=== PATIENT | female | born 1975 | race Caucasian/White ===

== ENCOUNTER 2017-08-26 06:39 | Outpatient (RCR) | payer OTHER, SELFPAY ==
[2017-08-26 08:17] LABS: International Normalized Ratio 2.4
== END 2017-08-26 06:45 | disposition home or self-care (01) ==
LOC: LAB 06:39
PROVIDERS: Family Provider Family Medicine; PCP Family Medicine; Visit Provider Family Medicine
DX: I82.409 Acute embolism and thrombosis of unspecified deep veins of unspecified lower extremity (principal)
CPT/HCPCS: 36415; 85610

== ENCOUNTER 2017-11-05 06:25 | Outpatient (RCR) | payer OTHER, SELFPAY ==
[2017-11-05 07:40] LABS: International Normalized Ratio 2.7; Prothrombin Time (Protime)PT. 28.8 SECONDS (11.7-14.9)
== END 2017-11-05 07:00 | disposition home or self-care (01) ==
LOC: LAB 06:25
PROVIDERS: Family Provider Family Medicine; PCP Family Medicine; Visit Provider Family Medicine
DX: I82.409 Acute embolism and thrombosis of unspecified deep veins of unspecified lower extremity (principal)
CPT/HCPCS: 36415; 85610

== ENCOUNTER 2017-12-09 06:33 | Outpatient (RCR) | payer OTHER, SELFPAY ==
[2017-12-09 07:26] LABS: International Normalized Ratio 2.2; Prothrombin Time (Protime)PT. 24.1 SECONDS (11.7-14.9)
== END 2017-12-09 07:00 | disposition home or self-care (01) ==
LOC: LAB 06:33
PROVIDERS: Family Provider Family Medicine; PCP Family Medicine; Visit Provider Family Medicine
DX: I82.409 Acute embolism and thrombosis of unspecified deep veins of unspecified lower extremity (principal)
CPT/HCPCS: 36415; 85610

== ENCOUNTER 2018-01-17 06:30 | Outpatient (RCR) | payer OTHER, SELFPAY ==
[2018-01-17 08:34] LABS: International Normalized Ratio 2.2; Prothrombin Time (Protime)PT. 24.8 SECONDS (11.7-14.9)
== END 2018-01-17 08:00 | disposition home or self-care (01) ==
LOC: LAB 06:30
PROVIDERS: Family Provider Family Medicine; PCP Family Medicine; Visit Provider Family Medicine
DX: I82.409 Acute embolism and thrombosis of unspecified deep veins of unspecified lower extremity (principal)
CPT/HCPCS: 36415; 85610

== ENCOUNTER 2018-03-02 01:30 | Outpatient (RCR) | payer OTHER, SELFPAY ==
[2018-03-02 03:11] LABS: International Normalized Ratio 1.9
== END 2018-03-02 03:00 | disposition home or self-care (01) ==
LOC: LAB 01:30
PROVIDERS: Family Provider Family Medicine; PCP Family Medicine; Visit Provider Family Medicine
DX: I82.409 Acute embolism and thrombosis of unspecified deep veins of unspecified lower extremity (principal)
CPT/HCPCS: 85610

== ENCOUNTER 2018-04-11 08:58 | Outpatient (RCR) | payer OTHER, SELFPAY ==
[2018-04-11 09:52] LABS: International Normalized Ratio 1.6; Prothrombin Time (Protime)PT. 19.4 SECONDS (11.7-14.9)
== END 2018-04-11 10:00 | disposition home or self-care (01) ==
LOC: LAB 08:58
PROVIDERS: Family Provider Family Medicine; PCP Family Medicine; Visit Provider Family Medicine
DX: I82.409 Acute embolism and thrombosis of unspecified deep veins of unspecified lower extremity (principal)
CPT/HCPCS: 36415; 85610

== ENCOUNTER 2018-05-05 02:56 | Outpatient (RCR) | payer OTHER, SELFPAY ==
[2018-05-05 03:37] LABS: International Normalized Ratio 2.2; Prothrombin Time (Protime)PT. 24.9 SECONDS (11.7-14.9)
== END 2018-05-05 04:00 | disposition home or self-care (01) ==
LOC: LAB 02:56
PROVIDERS: Family Provider Family Medicine; PCP Family Medicine; Visit Provider Family Medicine
DX: I82.409 Acute embolism and thrombosis of unspecified deep veins of unspecified lower extremity (principal)
CPT/HCPCS: 85610

== ENCOUNTER 2018-06-04 05:22 | Outpatient (RCR) | payer OTHER, SELFPAY ==
[2018-06-04 07:35] LABS: International Normalized Ratio 2.3; Prothrombin Time (Protime)PT. 25.6 SECONDS (11.7-14.9)
== END 2018-06-04 07:00 | disposition home or self-care (01) ==
LOC: LAB 05:22
PROVIDERS: Family Provider Family Medicine; PCP Family Medicine; Referring Provider Family Medicine; Visit Provider Family Medicine
DX: Z79.01 Long term (current) use of anticoagulants (principal)
CPT/HCPCS: 85610

== ENCOUNTER 2018-08-08 23:20 | Outpatient (RCR) | payer OTHER, SELFPAY ==
[2018-08-09 00:04] LABS: International Normalized Ratio 2.7
== END 2018-08-08 23:40 | disposition home or self-care (01) ==
LOC: LAB 23:20
PROVIDERS: Family Provider Family Medicine; PCP Family Medicine; Referring Provider Family Medicine; Visit Provider Family Medicine
DX: I82.409 Acute embolism and thrombosis of unspecified deep veins of unspecified lower extremity (principal)
CPT/HCPCS: 36415; 85610

== ENCOUNTER 2018-09-26 05:12 | Outpatient (RCR) | payer OTHER, SELFPAY ==
[2018-09-26 07:25] LABS: International Normalized Ratio 2.1; Prothrombin Time (Protime)PT. 23.4 SECONDS (11.7-14.9)
== END 2018-10-16 14:51 | disposition home or self-care (01) ==
LOC: LAB 05:12
PROVIDERS: Family Provider Family Medicine; PCP Family Medicine; Referring Provider Family Medicine; Visit Provider Family Medicine
DX: I82.409 Acute embolism and thrombosis of unspecified deep veins of unspecified lower extremity (principal)
CPT/HCPCS: 85610

== ENCOUNTER 2018-11-11 14:59 | Outpatient (RCR) | payer OTHER, SELFPAY ==
[2018-11-11 18:12] LABS: International Normalized Ratio 2.7; Prothrombin Time (Protime)PT. 28.5 SECONDS (11.7-14.9)
== END 2018-11-11 15:59 | disposition home or self-care (01) ==
LOC: LAB 14:59
PROVIDERS: Family Provider Family Medicine; PCP Family Medicine; Referring Provider Family Medicine; Visit Provider Family Medicine
DX: I82.409 Acute embolism and thrombosis of unspecified deep veins of unspecified lower extremity (principal); E46 Unspecified protein-calorie malnutrition; Z79.01 Long term (current) use of anticoagulants
CPT/HCPCS: 36415; 85610

== ENCOUNTER 2018-12-19 12:08 | Outpatient (RCR) | payer OTHER, SELFPAY ==
[2018-12-19 14:14] LABS: International Normalized Ratio 1.9
== END 2018-12-19 13:00 | disposition home or self-care (01) ==
LOC: MTLAB 12:08
PROVIDERS: Family Provider Family Medicine; PCP Family Medicine; Referring Provider Family Medicine; Visit Provider Family Medicine
DX: I82.409 Acute embolism and thrombosis of unspecified deep veins of unspecified lower extremity (principal); E46 Unspecified protein-calorie malnutrition; Z79.01 Long term (current) use of anticoagulants
CPT/HCPCS: 36415; 85610

== ENCOUNTER 2019-01-26 12:04 | Outpatient (RCR) | payer OTHER, SELFPAY ==
[2019-01-26 14:18] LABS: International Normalized Ratio 2.5; Prothrombin Time (Protime)PT. 27.1 SECONDS (11.7-14.9)
== END 2019-01-26 12:30 | disposition home or self-care (01) ==
LOC: MTLAB 12:04
PROVIDERS: Family Provider Family Medicine; PCP Family Medicine; Referring Provider Family Medicine; Visit Provider Family Medicine
DX: I82.409 Acute embolism and thrombosis of unspecified deep veins of unspecified lower extremity (principal); E46 Unspecified protein-calorie malnutrition; Z79.01 Long term (current) use of anticoagulants
CPT/HCPCS: 36415; 85610

== ENCOUNTER 2019-03-02 14:31 | Outpatient (RCR) | payer OTHER, SELFPAY ==
[2019-03-02 18:00] LABS: International Normalized Ratio 2.6; Prothrombin Time (Protime)PT. 27.7 SECONDS (11.7-14.9)
== END 2019-03-02 15:00 ==
LOC: MTLAB 14:31
PROVIDERS: Family Provider Family Medicine; PCP Family Medicine; Referring Provider Family Medicine; Visit Provider Family Medicine
DX: I82.409 Acute embolism and thrombosis of unspecified deep veins of unspecified lower extremity (principal); E46 Unspecified protein-calorie malnutrition; Z79.01 Long term (current) use of anticoagulants
CPT/HCPCS: 36415; 85610

== ENCOUNTER 2019-04-13 06:53 | Outpatient (RCR) | payer OTHER, SELFPAY ==
[2019-04-13 07:19] LABS: Absolute Lymphocyte Count 1.85 X10^3/uL (0.83-4.51); Absolute Neutrophil Count 3.9 X10^3/uL (2.0-7.7); Basophil# 0.03 X10^3/uL; Basophil% 0.5 % (0-1); Eosinophil# 0.08 X10^3/uL; Eosinophils% 1.2 % (0-5); Hematocrit 44.2 % (37-47); Hemoglobin 14.1 g/dL (12.0-15.0); Lymphocyte # 1.85 X10^3/ul (4.0); Lymphocyte % 28.6 % (19-41); Mean Corp Hgb Conc 31.9 g/dL (32-36); Mean Corpuscular Hgb 30.3 pg (27.0-32.0); Mean Corpuscular Volume 94.8 fL (81-99); Monocyte# 0.56 X10^3/uL; Monocyte% 8.7 % (0-10); NRBC Flagged by Analyzer 0 % (0-5); Neutrophil # 3.91 X10^3/uL (2.7-7.7); Neutrophil % 60.5 % (47-70); Platelet Count 230 K/mm3 (150-450); RBC Distribution Width CV 13.3 % (11.6-14.6); RBC Distribution Width SD 46.2 fl (35.1-43.9); Red Blood Count 4.66 M/mm3 (4.2-5.4); White Blood Count 6.5 K/mm3 (4.4-11.0)
[2019-04-13 07:32] LABS: International Normalized Ratio 2.7; Prothrombin Time (Protime)PT. 28.5 SECONDS (11.7-14.9)
[2019-04-13 08:00] LABS: ALB/GLOB Ratio 0.9 RATIO (0.9-2.4); AST(SGOT) 12 U/L (15-37); Alanine Aminotransfer ALT/SGPT 11 U/L (13-56); Albumin, Serum 3.5 g/dL (3.2-5.0); Alkaline Phosphatase 66 U/L (45-117); Anion Gap 5 (5-15); BUN 20 mg/dL (7-18); BUN/Creat Ratio 24.2 RATIO (10-20); Calcium,Total 8.9 mg/dL (8.5-10.1); Chloride 112 mmol/L (98-107); Cholesterol 186 mg/dL (200); Creatinine, Serum 0.82 mg/dL (0.55-1.02); EST Glomerular Filtration Rate 81 mL/min (>60); Est Glom Filt Rate - Afr Amer 97 mL/min (>60); Globulin 3.7 g/dL (2.2-4.2); Glucose 86 mg/dL (74-106); High Density Lipoprotein 82 mg/dL; Potassium 3.9 mmol/L (3.5-5.1); Protein, Total 7.2 g/dL (6.4-8.2); Sodium Level 142 mmol/L (136-145); Triglycerides 78 mg/dL; Very Low Density Lipoprotein 16 mg/dL (5-40)
== END 2019-04-13 07:53 | disposition home or self-care (01) ==
LOC: LAB 06:53
PROVIDERS: Family Provider Family Medicine; PCP Family Medicine; Referring Provider Family Medicine; Visit Provider Family Medicine
DX: I82.409 Acute embolism and thrombosis of unspecified deep veins of unspecified lower extremity (principal); E46 Unspecified protein-calorie malnutrition; Z79.01 Long term (current) use of anticoagulants
CPT/HCPCS: 36415; 80053; 80061; 85025; 85610

== ENCOUNTER → 2019-04-15 | Outpatient (CLI) | payer OTHER, SELFPAY ==
--- NOTE | 2019-04-15 07:36 | BI_ITS ---
MAMMOGRAPHY - BILATERAL SCREENING REASON FOR EXAM: Female, 43 years old. Routine annual screening examination. PERTINENT HISTORY: Non-contributory. TECHNIQUE: Digital bilateral breast monika (3D mammographic acquisition) in the CC and MLO projections. 2-D mediolateral oblique (MLO) and craniocaudad (CC) views of both breasts were obtained. CAD: Full Field Digital Mammography with Computer Added Detection was performed. COMPARISON: None. Baseline examination. FINDINGS: Breast Composition: The breasts are heterogeneously dense, which may obscure small masses. There are no dominant masses or suspicious calcifications. No other significant abnormalities are identified. BI/SCREEN MAMM (CAD) W/MONIKA BILAT IMPRESSION: Negative screening mammogram. Yearly followup mammogram recommended. (A) ASSESSMENT CATEGORY: BIRADS Category 1: Negative. A letter regarding these results will be sent to the patient by the facility within 30 days. Approximately 10% of breast cancers are not detected by mammography. A normal mammogram should not delay biopsy of a clinically suspicious abnormality. [id number] Electronically Signed: Mazin Montana, at 10:33 EDT , Service support ,
== END | disposition home or self-care (01) ==
LOC: OPBI 07:35
PROVIDERS: Family Provider Family Medicine; PCP Family Medicine; Referring Provider Family Medicine; Visit Provider Family Medicine
DX: Z12.31 Encounter for screening mammogram for malignant neoplasm of breast (principal)
CPT/HCPCS: 77063; 77067

== ENCOUNTER 2019-05-27 07:45 | Outpatient (RCR) | payer OTHER, SELFPAY ==
[2019-05-27 09:48] LABS: International Normalized Ratio 3.5; Prothrombin Time (Protime)PT. 35.2 SECONDS (11.7-14.9)
== END 2019-05-27 18:00 | disposition home or self-care (01) ==
LOC: LAB 07:45
PROVIDERS: Family Provider Family Medicine; PCP Family Medicine; Referring Provider Family Medicine; Visit Provider Family Medicine
DX: I82.409 Acute embolism and thrombosis of unspecified deep veins of unspecified lower extremity (principal); E46 Unspecified protein-calorie malnutrition; Z79.01 Long term (current) use of anticoagulants
CPT/HCPCS: 36415; 85610

== ENCOUNTER 2019-06-22 12:11 | Outpatient (RCR) | payer OTHER, SELFPAY ==
[2019-06-22 12:43] LABS: International Normalized Ratio 2.4; Prothrombin Time (Protime)PT. 25.9 SECONDS (11.7-14.9)
== END 2019-06-22 18:00 | disposition home or self-care (01) ==
LOC: LAB 12:11
PROVIDERS: Family Provider Family Medicine; PCP Family Medicine; Referring Provider Family Medicine; Visit Provider Family Medicine
DX: I82.409 Acute embolism and thrombosis of unspecified deep veins of unspecified lower extremity (principal); E46 Unspecified protein-calorie malnutrition; Z79.01 Long term (current) use of anticoagulants
CPT/HCPCS: 36415; 85610

== ENCOUNTER 2019-06-29 07:38 | Emergency (ER) | payer OTHER, SELFPAY ==
[2019-06-29 07:39] VITALS: BP 132/92; PULSE 88; RESP 16; TEMP 36.4; O2SAT 98; BMI 23.9
--- NOTE | 2019-06-29 08:08 | RAD_ITS ---
STUDY: X-RAY - LEFT SHOULDER REASON FOR EXAM: Female, 43 years old. Left shoulder pain. TECHNIQUE: 4 view(s) of the shoulder. COMPARISON: None. FINDINGS: Normal glenohumeral articulation. There is minimal widening of the AC joint suggesting a Type I acromioclavicular joint separation. Normal acromion. Normal humeral head and visualized proximal humerus. The soft tissue structures are unremarkable. Normal visualized pulmonary apex. RAD/Shoulder min 2 Views IMPRESSION: Minimal widening of the left AC joint suggestive of a type I AC joint separation. Electronically Signed: Mazin Montana, at 8:33 EST , Service support ,
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
== END 2019-06-29 08:43 | disposition home or self-care (01) ==
PROVIDERS: Emergency Provider Emergency Medicine; Family Provider Family Medicine; PCP Family Medicine
DX: S46.912A Strain of unspecified muscle, fascia and tendon at shoulder and upper arm level, left arm, initial encounter (principal); S80.02XA Contusion of left knee, initial encounter; Y04.0XXA Assault by unarmed brawl or fight, initial encounter; Y93.9 Activity, unspecified; Y92.9 Unspecified place or not applicable; J45.909 Unspecified asthma, uncomplicated; Z86.718 Personal history of other venous thrombosis and embolism; Z79.01 Long term (current) use of anticoagulants
CPT/HCPCS: 73030; 99282

== ENCOUNTER 2019-08-05 06:00 | Outpatient (RCR) | payer OTHER, SELFPAY ==
[2019-08-05 07:06] LABS: International Normalized Ratio 1.9; Prothrombin Time (Protime)PT. 21.8 SECONDS (11.7-14.9)
== END 2019-08-05 18:00 | disposition home or self-care (01) ==
LOC: LAB 06:00
PROVIDERS: Family Provider Family Medicine; PCP Family Medicine; Referring Provider Family Medicine; Visit Provider Family Medicine
DX: I82.409 Acute embolism and thrombosis of unspecified deep veins of unspecified lower extremity (principal); E46 Unspecified protein-calorie malnutrition; Z79.01 Long term (current) use of anticoagulants
CPT/HCPCS: 36415; 85610

== ENCOUNTER → 2019-08-14 16:06 | Outpatient (CLI) | payer OTHER, SELFPAY ==
[2019-08-03 09:13] VITALS: BMI 23.9
--- NOTE | 2019-08-14 16:06 | MRI_ITS ---
STUDY: MRI LEFT SHOULDER REASON FOR EXAM: Female, 43 years old. LEFT shoulder pain s/p injury, decreased ROM TECHNIQUE: Standardized fat and water weighted pulse sequences were obtained in all 3 orthogonal planes. COMPARISON: Left shoulder x-ray dated June 29, 2019 FINDINGS: No visualized marrow edema or occult fracture. No joint effusion is seen. Normal supraspinatus tendon. Normal infraspinatus tendon. Normal subscapularis tendon. Normal teres minor tendon. Normal supraspinatus muscle. Normal infraspinatus muscle. Normal subscapularis muscle. Normal teres minor muscle. Normal glenohumeral articulation. Normal humeral head and visualized proximal humerus. Normal biceps labral complex. Normal intracapsular long biceps tendon. Normal labrum. Normal capsulo- ligamentous complex. Normal rotator interval. Normal acromioclavicular articulation. There is a Type II morphology (curved), with a neutral orientation. There is no subacromial-subdeltoid bursal fluid. Normal visualized coracohumeral and coracoacromial ligaments. Normal quadrilateral space. Normal axillary space. Normal deltoid muscle. Normal trapezius muscle. MRI/Upper Ext Joint Only(Routine) IMPRESSION: 1. Negative MRI of the left shoulder. 2. Previously described mild widening of the left AC joint is not visualized on this study. Electronically Signed: Varun Goodman MD at 22:43 EST , Service support ,
== END ==
PROVIDERS: Family Provider Family Medicine; PCP Family Medicine; Referring Provider Physician Assistant; Visit Provider Physician Assistant
DX: S46.912A Strain of unspecified muscle, fascia and tendon at shoulder and upper arm level, left arm, initial encounter (principal)
CPT/HCPCS: 73221

== ENCOUNTER 2019-10-09 14:29 | Outpatient (RCR) | payer OTHER, SELFPAY ==
[2019-08-18 14:20] VITALS: BMI 23.9
[2019-10-09 15:55] LABS: International Normalized Ratio 2.8
== END 2019-10-09 18:00 | disposition home or self-care (01) ==
LOC: MTLAB 14:29
PROVIDERS: Family Provider Family Medicine; PCP Family Medicine; Referring Provider Family Medicine; Visit Provider Family Medicine
DX: I82.409 Acute embolism and thrombosis of unspecified deep veins of unspecified lower extremity (principal)
CPT/HCPCS: 36415; 85610

== ENCOUNTER 2019-12-16 06:23 | Outpatient (RCR) | payer OTHER, SELFPAY ==
[2019-08-18 14:20] VITALS: BMI 23.9
[2019-12-16 07:44] LABS: International Normalized Ratio 1.9; Prothrombin Time (Protime)PT. 21.1 SECONDS (11.7-14.9)
== END 2019-12-17 18:00 | disposition home or self-care (01) ==
LOC: LAB 06:23
PROVIDERS: Family Provider Family Medicine; PCP Family Medicine; Referring Provider Family Medicine; Visit Provider Family Medicine
DX: I82.409 Acute embolism and thrombosis of unspecified deep veins of unspecified lower extremity (principal)
CPT/HCPCS: 36415; 85610

== ENCOUNTER → 2019-12-17 14:37 | Outpatient (CLI) | payer OTHER, SELFPAY ==
[2019-08-18 14:20] VITALS: BMI 23.9
--- NOTE | 2019-12-17 14:44 | US_ITS ---
STUDY: ULTRASOUND OF THE FEMALE PELVIS - COMPLETE REASON FOR EXAM: Female, 44 years old. Dysfunctional uterine bleeding. LMP: December 01, 2019. TECHNIQUE: Transabdominal and Transvaginal TECHNICAL QUALITY: Adequate. COMPARISON: CT of the abdomen and pelvis, April 08, 2011. FINDINGS: The uterus is anteverted on transabdominal ultrasound but appears retroverted on transvaginal ultrasound. It is in a midline position. The uterus measures 8.3 x 5.5 x 3.8 cm. There is a Nabothian cysts of the cervix. The endometrium measures 14.5 mm in thickness, and is hyperechoic. There is no demonstrated endometrial mass. There is no demonstrated myometrial mass, however, the myometrium is heterogenous.. I.U.D. - The patient does not have an I.U.D. The right ovary is visualized. The right ovary measures 4.5 x 2.9 x 2.3 cm. There are multiple follicles of the right ovary without a dominant cyst. There is no visualized right adnexal mass or complex lesion. There is normal arterial and normal venous vascularity. The left ovary is visualized. The left ovary measures 2.3 x 2.88 x 1.3 cm. There are multiple follicles of the left ovary without a dominant cyst. There is no visualized left adnexal mass or complex lesion. There is normal arterial and normal venous vascularity. There is no fluid in the cul-de-sac. The pre void volume of the bladder was 704 ml. The urinary bladder appears grossly normal. Polycystic ovary disease: No. US/Pelvic (Non ) IMPRESSION: 1. Prominent endometrium without mass. 2. Heterogenous myometrium. The possibility of fibroids can''t be ruled out. 3. No gross ovarian or adnexal abnormality. Electronically Signed: Joselo Beasley DO at 16:10 EDT Tel [phone], Service support ,
--- NOTE | 2019-12-17 14:45 | US_ITS ---
STUDY: ULTRASOUND OF THE FEMALE PELVIS - COMPLETE REASON FOR EXAM: Female, 44 years old. Dysfunctional uterine bleeding. LMP: December 01, 2019. TECHNIQUE: Transabdominal and Transvaginal TECHNICAL QUALITY: Adequate. COMPARISON: CT of the abdomen and pelvis, April 08, 2011. FINDINGS: The uterus is anteverted on transabdominal ultrasound but appears retroverted on transvaginal ultrasound. It is in a midline position. The uterus measures 8.3 x 5.5 x 3.8 cm. There is a Nabothian cysts of the cervix. The endometrium measures 14.5 mm in thickness, and is hyperechoic. There is no demonstrated endometrial mass. There is no demonstrated myometrial mass, however, the myometrium is heterogenous.. I.U.D. - The patient does not have an I.U.D. The right ovary is visualized. The right ovary measures 4.5 x 2.9 x 2.3 cm. There are multiple follicles of the right ovary without a dominant cyst. There is no visualized right adnexal mass or complex lesion. There is normal arterial and normal venous vascularity. The left ovary is visualized. The left ovary measures 2.3 x 2.88 x 1.3 cm. There are multiple follicles of the left ovary without a dominant cyst. There is no visualized left adnexal mass or complex lesion. There is normal arterial and normal venous vascularity. There is no fluid in the cul-de-sac. The pre void volume of the bladder was 704 ml. The urinary bladder appears grossly normal. Polycystic ovary disease: No. US/Transvaginal Non- IMPRESSION: 1. Prominent endometrium without mass. 2. Heterogenous myometrium. The possibility of fibroids can''t be ruled out. 3. No gross ovarian or adnexal abnormality. Electronically Signed: Joselo Beasley DO at 16:10 EDT Tel [phone], Service support ,
== END ==
PROVIDERS: PCP Family Medicine; Referring Provider Obstetrics & Gynecology; Visit Provider Obstetrics & Gynecology
DX: N93.9 Abnormal uterine and vaginal bleeding, unspecified (principal)
CPT/HCPCS: 76830; 76856

== ENCOUNTER 2020-03-09 06:40 | Outpatient (RCR) | payer OTHER, SELFPAY ==
[2019-08-18 14:20] VITALS: BMI 23.9
[2020-03-09 08:35] LABS: International Normalized Ratio 2.2; Prothrombin Time (Protime)PT. 24.2 SECONDS (11.7-14.9)
== END 2020-03-09 18:00 | disposition home or self-care (01) ==
LOC: LAB 06:40
PROVIDERS: Family Provider Family Medicine; PCP Family Medicine; Referring Provider Family Medicine; Visit Provider Family Medicine
DX: I82.409 Acute embolism and thrombosis of unspecified deep veins of unspecified lower extremity (principal)
CPT/HCPCS: 36415; 85610

== ENCOUNTER 2020-05-05 06:38 | Outpatient (RCR) | payer OTHER, SELFPAY ==
[2019-08-18 14:20] VITALS: BMI 23.9
== END 2020-05-05 18:00 | disposition home or self-care (01) ==
LOC: LAB 06:38
PROVIDERS: Family Provider Family Medicine; PCP Family Medicine; Referring Provider Family Medicine; Visit Provider Family Medicine
DX: I82.409 Acute embolism and thrombosis of unspecified deep veins of unspecified lower extremity (principal)
CPT/HCPCS: 36415; 85610

== ENCOUNTER 2020-06-22 06:32 | Outpatient (RCR) | payer OTHER, SELFPAY ==
[2019-08-18 14:20] VITALS: BMI 23.9
[2020-06-22 07:46] LABS: International Normalized Ratio 2.2; Prothrombin Time (Protime)PT. 23.8 SECONDS (11.7-14.9)
== END 2020-06-22 18:00 | disposition home or self-care (01) ==
LOC: LAB 06:32
PROVIDERS: Family Provider Family Medicine; PCP Family Medicine; Referring Provider Family Medicine; Visit Provider Family Medicine
DX: I82.409 Acute embolism and thrombosis of unspecified deep veins of unspecified lower extremity (principal)
CPT/HCPCS: 36415; 85610

== ENCOUNTER 2020-08-22 07:24 | Outpatient (RCR) | payer OTHER, SELFPAY ==
[2019-08-18 14:20] VITALS: BMI 23.9
[2020-08-22 08:53] LABS: International Normalized Ratio 2.3
== END 2020-08-22 18:00 | disposition home or self-care (01) ==
LOC: LAB 07:24
PROVIDERS: Family Provider Family Medicine; PCP Family Medicine; Referring Provider Family Medicine; Visit Provider Family Medicine
DX: I82.409 Acute embolism and thrombosis of unspecified deep veins of unspecified lower extremity (principal)
CPT/HCPCS: 36415; 85610

== ENCOUNTER 2021-01-09 06:31 | Outpatient (RCR) | payer OTHER, SELFPAY ==
[2019-08-18 14:20] VITALS: BMI 23.9
[2020-12-19 08:39] LABS: International Normalized Ratio 1.4; Prothrombin Time (Protime)PT. 16.2 SECONDS (11.7-14.9)
[2020-12-27 09:03] LABS: International Normalized Ratio 1.4; Prothrombin Time (Protime)PT. 16.6 SECONDS (11.7-14.9)
[2021-01-09 07:32] LABS: International Normalized Ratio 1.6; Prothrombin Time (Protime)PT. 18.6 SECONDS (11.7-14.9)
== END 2021-01-09 18:00 | disposition home or self-care (01) ==
LOC: LAB 06:31
PROVIDERS: Family Provider Family Medicine; PCP Family Medicine; Referring Provider Family Medicine; Visit Provider Family Medicine
DX: I82.409 Acute embolism and thrombosis of unspecified deep veins of unspecified lower extremity (principal); Z79.01 Long term (current) use of anticoagulants
CPT/HCPCS: 36415; 85610

== ENCOUNTER 2021-01-19 06:30 | Outpatient (RCR) | payer OTHER, SELFPAY ==
[2019-08-18 14:20] VITALS: BMI 23.9
[2021-01-19 06:57] LABS: International Normalized Ratio 2.6; Prothrombin Time (Protime)PT. 27.4 SECONDS (11.7-14.9)
== END 2021-01-19 18:00 | disposition home or self-care (01) ==
LOC: LAB 06:30
PROVIDERS: Family Provider Family Medicine; PCP Family Medicine; Referring Provider Family Medicine; Visit Provider Family Medicine
DX: I82.409 Acute embolism and thrombosis of unspecified deep veins of unspecified lower extremity (principal); Z79.01 Long term (current) use of anticoagulants
CPT/HCPCS: 36415; 85610

== ENCOUNTER 2021-06-30 06:40 | Outpatient (RCR) | payer OTHER, SELFPAY ==
[2019-08-18 14:20] VITALS: BMI 23.9
[2021-06-30 07:16] LABS: International Normalized Ratio 3.8; Prothrombin Time (Protime)PT. 36.7 SECONDS (11.7-14.9)
== END 2021-07-18 18:00 | disposition home or self-care (01) ==
LOC: LAB 06:40
PROVIDERS: Family Provider Family Medicine; PCP Family Medicine; Referring Provider Family Medicine; Visit Provider Family Medicine
DX: I82.409 Acute embolism and thrombosis of unspecified deep veins of unspecified lower extremity (principal); Z79.01 Long term (current) use of anticoagulants
CPT/HCPCS: 36415; 85610

== ENCOUNTER 2021-08-04 16:19 | Outpatient (RCR) | payer OTHER, SELFPAY ==
[2021-07-19 03:45] VITALS: BMI 23.9
[2021-08-04 17:08] LABS: International Normalized Ratio 2.8; Prothrombin Time (Protime)PT. 28.7 SECONDS (11.7-14.9)
== END 2021-08-19 18:00 | disposition home or self-care (01) ==
LOC: LAB 16:19
PROVIDERS: Family Provider Family Medicine; PCP Family Medicine; Referring Provider Family Medicine; Visit Provider Family Medicine
DX: I82.409 Acute embolism and thrombosis of unspecified deep veins of unspecified lower extremity (principal); Z79.01 Long term (current) use of anticoagulants
CPT/HCPCS: 36415; 85610

== ENCOUNTER 2021-11-23 14:22 | Outpatient (RCR) | payer OTHER, SELFPAY ==
[2021-08-21 02:30] VITALS: BMI 23.9
[2021-11-23 16:00] LABS: International Normalized Ratio 2.2; Prothrombin Time (Protime)PT. 23.3 SECONDS (11.7-14.9)
== END 2021-11-23 18:00 | disposition home or self-care (01) ==
LOC: LAB 14:22
PROVIDERS: Family Provider Family Medicine; PCP Family Medicine; Referring Provider Family Medicine; Visit Provider Family Medicine
DX: Z86.718 Personal history of other venous thrombosis and embolism (principal); Z79.01 Long term (current) use of anticoagulants
CPT/HCPCS: 85610

== ENCOUNTER 2021-11-23 14:26 | Emergency (ER) | payer OTHER, SELFPAY ==
[2021-11-23 14:27] VITALS: BP 143/112; PULSE 98; RESP 16; TEMP 36.6; O2SAT 100; BMI 25.5
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
[2021-11-23 15:37] VITALS: BP 135/78; PULSE 62; RESP 15; O2SAT 98
[2021-11-24 09:53] LABS: HIV - WCH Non-Reactive (Nonreactive); Hepatitis B Surface Antibody Reactive; Hepatitis B Surface Antigen Non-Reactive (Nonreactive); Hepatitis C Antibody Non-Reactive (Nonreactive)
== END 2021-11-23 15:39 | disposition home or self-care (01) ==
PROVIDERS: Emergency Provider Emergency Medicine; PCP Family Medicine; Visit Provider Emergency Medicine
DX: S50.812A Abrasion of left forearm, initial encounter (principal); Y04.8XXA Assault by other bodily force, initial encounter; Y92.239 Unspecified place in hospital as the place of occurrence of the external cause; Y93.F9 Activity, other caregiving; Y99.0 Civilian activity done for income or pay; J45.909 Unspecified asthma, uncomplicated; Z79.01 Long term (current) use of anticoagulants; Z79.899 Other long term (current) drug therapy
CPT/HCPCS: 86703; 86706; 86803; 87340; 99282